=== PATIENT | female | born 1965 | race Caucasian/White ===

== ENCOUNTER 2018-09-19 13:57 | Emergency (ER) | payer OTHER ==
[~2018-09-19] VITALS: Ht 167.6 cm; Wt 65.8 kg
[~2018-09-19 13:57] MED LIST: ASPI1TAB31 PO; HYDR-2761 PO; IBUP200C9 PO
[2018-09-19 14:52] VITALS: BP 149/89
--- NOTE | 2018-09-19 14:56 | PHYS DOC ---
Past Medical History Past Medical History: Ovarian Cyst Adult General Chief Complaint Chief Complaint: PELVIC PAIN HPI HPI Patient is a 53 year old female with history of ovarian cyst who presents to the ED today complaining of mild burning left pelvic pain intermittently for 2 weeks. Patient denies anything specifically exacerbating or relieving the pain. She states she has been taking ibuprofen with no relief. She states the last time she had similar symptoms she had endometriosis. She states she called the ANIMAL CARE SERVICE WORKER's office and they requested her to come to the ED. Review of Systems Review of Systems Constitutional: Denies fever or chills [] Eyes: Denies change in visual acuity, redness, or eye pain [] HENT: Reports sinus infection, denies sore throat [] Respiratory: Denies cough or shortness of breath [] Cardiovascular: No additional information not addressed in HPI [] GI: Reports left pelvic pain, denies nausea, vomiting, bloody stools or diarrhea [] : Denies dysuria or hematuria [] Musculoskeletal: Denies back pain or joint pain [] Integument: Denies rash or skin lesions [] Neurologic: Denies headache, focal weakness or sensory changes [] All other systems were reviewed and found to be within normal limits, except as documented in this note. Allergies Allergies Allergies Coded Allergies Type Severity Reaction Last Updated Verified No Known Drug Allergies 09/16/14 No Physical Exam Physical Exam Constitutional: Well developed, well nourished, no acute distress, non-toxic appearance. [] HENT: Normocephalic, atraumatic, bilateral external ears normal, oropharynx moist, no oral exudates, Eyes: PERRLA, EOMI, conjunctiva normal, no discharge. [] Patient sounds congested nasally. Mild maxillary sinus tenderness, boggy and erythematous nasal turbinates Neck: Normal range of motion, no tenderness, supple, no stridor. [] Cardiovascular:Heart rate regular rhythm, no murmur [] Lungs & Thorax: Bilateral breath sounds clear to auscultation [] Abdomen: Bowel sounds normal, soft, no tenderness, no masses, no pulsatile masses. [] Pelvic exam External pelvic appears normal, cervix not visualized, no CMT, mild left adnexal tenderness, no adnexal tenderness to the right. Trace amount of white discharge in the vaginal vault. Skin: Warm, dry, no erythema, no rash. [] Back: No tenderness, no CVA tenderness. [] Extremities: No tenderness, no cyanosis, no clubbing, ROM intact, no edema. [] Neurologic: Alert and oriented X 3, normal motor function, normal sensory function, no focal deficits noted. [] Psychologic: Affect normal, judgement normal, mood normal. [] Current Patient Data Vital Signs Vital Signs Date Time Temp Pulse Resp B/P (MAP) Pulse Ox O2 Delivery O2 Flow Rate FiO2 09/19/18 14:52 98.4 84 18 149/89 (109) 98 Room Air 98.4 Lab Values Laboratory Tests Test 09/19/18 14:40 09/19/18 14:57 09/19/18 15:01 Urine Collection Type Unknown Urine Color Yellow Urine Clarity Clear Urine pH 5.5 Urine Specific [place] 1.025 Urine Protein Negative mg/dL (NEG-TRACE) Urine Glucose (UA) Negative mg/dL (NEG) Urine Ketones (Stick) Negative mg/dL (NEG) Urine Blood Negative (NEG) Urine Nitrite Negative (NEG) Urine Bilirubin Negative (NEG) Urine Urobilinogen Dipstick 0.2 mg/dL (0.2 mg/dL) Urine Leukocyte Esterase Negative (NEG) Urine RBC 1-2 /HPF (0-2) Urine WBC 1-4 /HPF (0-4) Urine Squamous Epithelial Cells Mod /LPF Urine Bacteria Few /HPF (0-FEW) Urine Mucus Marked /LPF POC Urine HCG, Qualitative Hcg negative (Negative) White Blood Count 4.8 x10^3/uL (4.0-11.0) Red Blood Count 4.27 x10^6/uL (3.50-5.40) Hemoglobin 14.0 g/dL (12.0-15.5) Hematocrit 41.0 % (36.0-47.0) Mean Corpuscular Volume 96 fL (79-100) Mean Corpuscular Hemoglobin 33 pg (25-35) Mean Corpuscular Hemoglobin Concent 34 g/dL (31-37) Red Cell Distribution Width 12.8 % (11.5-14.5) Platelet Count 157 x10^3/uL (140-400) Neutrophils (%) (Auto) 58 % (31-73) Lymphocytes (%) (Auto) 32 % (24-48) Monocytes (%) (Auto) 8 % (0-9) Eosinophils (%) (Auto) 2 % (0-3) Basophils (%) (Auto) 1 % (0-3) Neutrophils # (Auto) 2.8 x10^3uL (1.8-7.7) Lymphocytes # (Auto) 1.5 x10^3/uL (1.0-4.8) Monocytes # (Auto) 0.4 x10^3/uL (0.0-1.1) Eosinophils # (Auto) 0.1 x10^3/uL (0.0-0.7) Basophils # (Auto) 0.0 x10^3/uL (0.0-0.2) Sodium Level 140 mmol/L (136-145) Potassium Level 3.8 mmol/L (3.5-5.1) Chloride Level 105 mmol/L (98-107) Carbon Dioxide Level 27 mmol/L (21-32) Anion Gap 8 (6-14) Blood Urea Nitrogen 14 mg/dL (7-20) Creatinine 0.9 mg/dL (0.6-1.0) Estimated GFR (Cockcroft-Gault) 66.0 BUN/Creatinine Ratio 16 (6-20) Glucose Level 92 mg/dL (70-99) Calcium Level 9.1 mg/dL (8.5-10.1) Total Bilirubin 0.2 mg/dL (0.2-1.0) Aspartate Amino Transferase (AST) 17 U/L (15-37) Alanine Aminotransferase (ALT) 18 U/L (14-59) Alkaline Phosphatase 55 U/L (46-116) Total Protein 7.0 g/dL (6.4-8.2) Albumin 3.7 g/dL (3.4-5.0) Albumin/Globulin Ratio 1.1 (1.0-1.7) Lipase 198 U/L (73-393) Laboratory Tests 09/19/18 15:01 Laboratory Tests 09/19/18 15:01 Microbiology 09/19/18 Wet Prep - Final, Complete EKG EKG [] Radiology/Procedures Radiology/Procedures []PROCEDURE: PELVIS W/TV Pelvic ultrasound HISTORY: Left pelvic pain. Transabdominal scan: Uterus visualization is limited. Ovaries are not seen. Endovaginal scan: Uterus measures 8.7 x 4.6 x 5.8 cm, with a heterogeneous appearance. Endometrial stripe measures 10 mm. Right ovary measures 2.6 cm long axis. Intact blood supply to the right ovary. Right ovary demonstrates small cysts and follicles, measuring up to 1 cm. Left ovary measures 3.1 cm long axis, and contains a 17 mm heterogeneous lesion, likely a complex cyst. Intact blood supply to the left ovary. Mild free pelvic fluid in the cul-de-sac. IMPRESSION: 1. Lesion within the left ovary, most likely a 17 mm complex or hemorrhagic cyst. Follow-up ultrasound in about 6 weeks could be of benefit for further evaluation. 2. Mildly heterogeneous uterine echotexture, without evidence of a dominant mass. 3. Mild free pelvic fluid. Electronically signed by: Alfredo Denson MD (09/19/2018 3:58 PM) [facility] DICTATED and SIGNED BY: ALFREDO DENSON MD DATE: 09/19/18 1558 Course & Med Decision Making Course & Med Decision Making Pertinent Labs and Imaging studies reviewed. (See chart for details) This is a 53-year-old female patient presenting to the ED today complaining of left pelvic pain for 2 weeks. CBC with a normal WBC, normal hemoglobin and hematocrit, CMP-no acute findings. Urine analysis is negative for infection, wet prep is negative. pelvic ultrasound-Lesion within the left ovary, most likely a 17 mm complex or hemorrhagic cyst. Follow-up ultrasound in about 6 weeks could be of benefit for further evaluation. Mildly heterogeneous uterine echotexture, without evidence of a dominant mass. Results also communicated to patient, upon discharge she states she's had a sinus infection with symptoms for almost 2 weeks, she has tried [id number] remedies with no relief. She is requesting antibiotics. She is afebrile. Discharged on Augmentin. Ibuprofen and Tylenol recommended for her pain. She she states she'll follow-up with her [employer]IMAL CARE SERVICE WORKER in 4 weeks. Dragon Disclaimer Dragon Disclaimer This electronic medical record was generated, in whole or in part, using a voice recognition dictation system. Departure Departure Impression: Primary Impression: Hemorrhagic cyst of left ovary Additional Impression: Acute sinusitis Disposition: 01 HOME, SELF-CARE Condition: STABLE Referrals: UNKNOWN PCP NAME (PCP) follow up with your OBGYN in 4 weeks as scheduled. Patient Instructions: Ovarian Cyst, Sinusitis Additional Instructions: You were evaluated in the emergency room for pelvic pain. Chest pain urine noted to have a left hemorrhagic cyst, please follow-up with her [employer]IMAL CARE SERVICE WORKER as as scheduled. Please take Tylenol/Motrin as needed for pain. We also put you on antibiotics for sinus infection, ensure you complete them. Scripts Amoxicillin/Potassium Clav (AUGMENTIN 875-125 TABLET) 1 Each Tablet 1 TAB PO BID, #20 TAB Prov: JAQUAN POLK APRN 09/19/18 Problem Qualifiers Additional Impression: Acute sinusitis Sinusitis location: maxillary Recurrence: non-recurrent Qualified Codes: J01.00 - Acute maxillary sinusitis, unspecified JAQUAN POLK JUNIOR DESIGNER Sep 19, 2018 14:56
[2018-09-19 15:09] LABS: BASO % 1 % (0-3); EOS # 0.1 x10^3/uL (0.0-0.7); EOS % 2 % (0-3); LYMPH # 1.5 x10^3/uL (1.0-4.8); LYMPH % 32 % (24-48); MEAN CORPUSCULAR HEMOGLOBIN 33 pg (25-35); MEAN CORPUSCULAR HGB CONC 34 g/dL (31-37); MEAN CORPUSCULAR VOLUME 96 fL (79-100); MONO # 0.4 x10^3/uL (0.0-1.1); MONO % 8 % (0-9); NEUT # 2.8 x10^3uL (1.8-7.7); NEUT % 58 % (31-73); PLATELET COUNT 157 x10^3/uL (140-400); RED BLOOD COUNT 4.27 x10^6/uL (3.50-5.40); RED CELL DISTRIBUTION WIDTH 12.8 % (11.5-14.5); WHITE BLOOD COUNT 4.8 x10^3/uL (4.0-11.0)
[2018-09-19 15:11] LABS: BILIRUBIN,URINE NEGATIVE (NEG); CLARITY,URINE CLEAR; COLOR,URINE YELLOW; NITRITE,URINE NEGATIVE (NEG); PH,URINE 5.5; PROTEIN,URINE NEGATIVE (NEG-TRACE); UROBILINOGEN,URINE 0.2 mg/dL (0.2 mg/dL)
[2018-09-19 15:20] LABS: CALCIUM 9.1 mg/dL (8.5-10.1); CREATININE 0.9 mg/dL (0.6-1.0); POTASSIUM 3.8 mmol/L (3.5-5.1)
[2018-09-19 15:24] LABS: ALBUMIN 3.7 g/dL (3.4-5.0); ALBUMIN/GLOBULIN RATIO 1.1 (1.0-1.7); TOTAL BILIRUBIN 0.2 mg/dL (0.2-1.0)
[2018-09-19 15:31] LABS: BACTERIA,URINE FEW /HPF (0-FEW); SQUAMOUS EPITHELIAL CELL,UR MOD /LPF
--- NOTE | 2018-09-19 16:01 | RAD ---
Pelvic ultrasound HISTORY: Left pelvic pain. Transabdominal scan: Uterus visualization is limited. Ovaries are not seen. Endovaginal scan: Uterus measures 8.7 x 4.6 x 5.8 cm, with a heterogeneous appearance. Endometrial stripe measures 10 mm. Right ovary measures 2.6 cm long axis. Intact blood supply to the right ovary. Right ovary demonstrates small cysts and follicles, measuring up to 1 cm. Left ovary measures 3.1 cm long axis, and contains a 17 mm heterogeneous lesion, likely a complex cyst. Intact blood supply to the left ovary. Mild free pelvic fluid in the cul-de-sac. IMPRESSION: 1. Lesion within the left ovary, most likely a 17 mm complex or hemorrhagic cyst. Follow-up ultrasound in about 6 weeks could be of benefit for further evaluation. 2. Mildly heterogeneous uterine echotexture, without evidence of a dominant mass. 3. Mild free pelvic fluid. Electronically signed by: Johnny Denson MD (09/19/2018 3:58 PM) [facility]
[2018-09-19] MEDS ORDERED: AMOX1TAB61 PO (16:29)
[2018-09-22 14:15] LABS: GC PROBE Negative (Negative)
== END 2018-09-19 16:40 | disposition home or self-care (01) ==
LOC: ER 13:57
DX: N83.202 Unspecified ovarian cyst, left side (principal); J01.00 Acute maxillary sinusitis, unspecified
CPT/HCPCS: 36415; 76830; 76856; 80053; 81001; 81025; 83690; 85025; 87491; 87591; 99285; Q0111

== ENCOUNTER → 2020-08-05 | Outpatient (CLI) | payer OTHER ==
[~2020-08-05] MED LIST changes: +AMOX1TAB61 PO
--- NOTE | 2020-08-05 10:21 | KCIC ---
EXAM: Lumbar spine MRI without contrast. HISTORY: Left-sided sciatica after shoveling snow. TECHNIQUE: Multiplanar, multisequence magnetic resonance imaging of the lumbar spine was performed wi thout contrast. COMPARISON: None. FINDINGS: There is no significant listhesis. The vertebral bodies are normal in height. There is dege nerative endplate remodeling and Schmorl's node formation at T10-T11 and T11-T12. There is slight dis c desiccation at the lower lumbar levels. The conus terminates at L1. There is no fracture. At L1-L2 and L2-L3, there is no stenosis. At L3-L4, there is a mild disc bulge and endplate remodeling. There is no stenosis. At L4-L5, there is a mild disc bulge and endplate remodeling. There is no stenosis. At L5-S1, there is endplate remodeling. There is no stenosis. IMPRESSION: Mild multilevel degenerative change involving the lumbar spine, described above. There i s no acute finding or significant foraminal or central canal stenosis. Electronically signed by: Charlene Posada MD (08/05/2020 10:18 AM) [id number]
== END ==
LOC: KCIC MRI 09:11
PROVIDERS: ATTEND Family Medicine
DX: M47.816 Spondylosis without myelopathy or radiculopathy, lumbar region (principal)
CPT/HCPCS: 72148

== ENCOUNTER → 2020-08-17 | Outpatient (CLI) | payer OTHER ==
[~2020-08-17] MED LIST changes: +ACET500T68 PO; +CYAN25008 PO; +HERB1CAP PO; +MULT-245 PO
--- NOTE | 2020-08-17 15:17 | PDOC1 ---
INITIAL PAIN CONSULT DATE OF SERVICE: DOS: DATE: 08/17/20 TIME: 15:10 CHIEF COMPLAINT: Chief Complaint: Low back and left lower extremity pain HISTORY OF PRESENT ILLNESS: 55-year-old female presents with pain the low back left lower extremity on and off for many years but worse over the past 1 month after she was shoveling some snow and doing a lot of repetitive bending and stooping has pain now rating to the left lower extremity and across the low back into the gluteus posterior thigh posterior calf and into the ankle to the level of the foot patient reports no tingling in the toes but in the ankle significant tingling. Patient reports the pain is throbbing constant with some numbness in the leg radiating the left lower extremity and aching in the low back patient reports no symptoms on the right lower extremity. Patient has had physical therapy in the past and is still doing some stretching and strength exercises daily but no formal therapy recently patient reports she did have epidural injections in the past which were helpful as well also has tried methylprednisolone Tylenol and hydrocodone all of which do help took Tylenol last night as well as hydrocodone which does help significantly by about 50% patient reports no loss of motor function but significant fatigability of the left leg worse with walking standing changing positions better with sitting or laying down generally does not awaken her from sleep occasionally has over the past week or so patient reports it can affect her bowel bladder control with some increased urgency but no actual incontinence. Patient reports it does affect her ability to walk in sitting and she is leaning on her right side when she is sitting during the interview today. Patient reports her disability rating 0-10 10 being the worst is a 9 within normal limits ability 7-8 with recreation social activity occupation 9 with sexual behavior 7 with self-care and several life support activities. Did have a new MRI scan dated August 05, 2020 showing mild multilevel degenerative change along the lumbar spine with disc bulge at L4-5 disc bulge and mild disc bulge with endplate remodeling L34 and endplate remodeling L5-S1 as well. PAST MEDICAL HISTORY: PMH: Arthritis blood clots PREVIOUS SURGERIES: Past Surgical Hx: x1, tubal ligation, hemorrhoidectomy, left knee scope, left foot surgery, uterine ablation. CURRENT MEDICATIONS: Current Meds: Active Scripts Medications Dose Route/Sig Max Daily Dose Days Date Category Colon Herbal Cleanser (Herbal Drugs) 1 Each Capsule 1 Each PO DAILY 3/24/21 Reported Hydrocodone-Apap 5-325 (Hydrocodone Bit/Acetaminophen) 1 Tab Tablet 1 Tab PO PRN Q6HRS PRN 08/17/20 Reported Acetaminophen 500 Mg Tablet 1 Tab PO PRN Q6HRS PRN 15 08/17/20 Reported Vitamin B12 (Cyanocobalamin (Vitamin B-12)) 2,500 Mcg Tablet Unknown Dose PO DAILY 08/17/20 Reported Multi Vitamin Daily (Multivitamin) 1 Each Tablet 1 Tab PO DAILY 30 08/17/20 Reported Advil (Ibuprofen) 200 Mg Capsule 200 Mg PO PRN 03/09/15 Reported Excedrin Migraine Caplet (Aspirin/Acetaminophen/Caffeine) 1 Each Tablet 1 Each PO PRN 03/09/15 Reported ALLERGIES; Allergies: Coded Allergies: No Known Drug Allergies (Unverified , 09/16/14) FAMILY HISTORY: Family Hx: Diabetes, and heart disease in patient's father SOCIAL HISTORY: Social Hx: Patient drinks alcohol 2-3 times a week does not smoke does not use any illegal illicit recreational drugs is lives with her spouse lives locally in [facility] works currently from home mostly in a sitting position at her desk. REVIEW OF SYSTEMS: ROS: Positive for those items mentioned in history of present illness, all systems are reviewed, otherwise negative ,and are complete full and well-documented on patient's chart. PHYSICAL EXAM: VS: Blood pressure is 121/61 pulse 16 respirations 72 temperature 99.1 F height is 5 foot 6 inches weight is 159 pounds PE: PHYSICAL EXAMINATION: GENERAL: The patient is awake, alert, oriented, appropriate, very pleasant demeanor HEENT: Shows normocephalic, atraumatic. Extraocular movements are intact and symmetrical. Oral cavity: Mucous membranes moist and pink. Dentition is intact. NECK: Shows anterior throat supple without palpable lymphadenopathy noted. Swallow reflex symmetrical. CHEST: Shows normal on inspection. Breath sounds are clear bilaterally, no rales or rhonchi. HEART: Shows S1, S2 clear. No murmurs auscultated. ABDOMEN: Soft, nontender, nondistended, obese. No palpable organomegaly is noted. No rebound or guarding demonstrated. BACK: Shows spine grossly in the midline. Normal-appearing cervical lordotic curvature. There is slightly increased thoracic kyphosis, some minor flattening of the lumbar lordotic curvature. Lumbar paraspinous muscles show symmetrical on inspection, on palpation shows some moderate tenderness diffusely throughout the upper, middle and lower distribution of the paraspinous muscles bilaterally and also into the lower thoracic paraspinous musculature, firm and tender, but without specific trigger points, without radiation of pain. The patient has good rotational motion of the lumbar spine, both laterally as well as extension and flexion without significant difficulty. No tenderness over the spinous processes, sacrum or sacroiliac regions. EXTREMITIES: Lower extremities show deep tendon reflexes 2+ in the patellar and tendo calcaneus tendons. Motor exam is 5 on a scale of 5 with right dorsiflexion, extension, quadriceps and hamstring flexion and 4/5 on the left. Peripheral pulses are 1+ posterior tibial. No peripheral edema is noted bilaterally. Lower extremities are warm and dry to touch, equal in color and appearance. Straight leg raise noted to be negative on the right, left side is positive at approximately 35 degrees decreased with knee flexion. Gaenslen's and Maximo's maneuvers are negative bilaterally. The patient is able to stand, stand on her toes without significant difficulty or loss of balance and walks with a normal-appearing gait does not appear to favor the right or left lower extremity significantly for short distance in the office today not using any assistive devices to ambulate. SKIN: Shows warm and dry, good turgor. No edema. No sores, rashes or bruising throughout. IMPRESSION: Impression: 55-year-old female with approximate 1 month history increasing pain low back left lower extremity radicular fashion following L5-S1 dermatomal distribution. History of arthritis Plan: Options were discussed with the patient including conservative medical management physical therapies interventional techniques. Patient elects interventional techniques. We discussed a lumbar epidural steroid injections using description as well as anatomical models to describe the procedure. Patient will wait for preauthorization with insurance provider and return for a translaminar L5-S1 lumbar epidural steroid injection at that time. In the meantime patient will continue with stretching strength exercises walking daily as tolerated. DIONY HUGHES MD Aug 17, 2020 15:16
== END | disposition home or self-care (01) ==
LOC: PNCL 14:16
PROVIDERS: ATTEND Anesthesiology
DX: M54.5 Low back pain (principal); M79.605 Pain in left leg; M19.90 Unspecified osteoarthritis, unspecified site; Z79.899 Other long term (current) drug therapy; Z98.890 Other specified postprocedural states; Z83.3 Family history of diabetes mellitus; Z82.49 Family history of ischemic heart disease and other diseases of the circulatory system; Z72.89 Other problems related to lifestyle
CPT/HCPCS: 99212; G0463

== ENCOUNTER → 2020-08-25 | Outpatient (CLI) | payer OTHER ==
[~2020-08-25] MED LIST changes: +IOHEXOL 180 MG/ML 10 ML VIAL. ONE; +methylPREDNISolone ACETATE 40 MG/ML VIAL. ONE; +methylPREDNISolone ACETATE 80 MG/ML VIAL. ONE
--- NOTE | 2020-08-25 14:49 | PDOC ---
Progress Note - Pain Clinic Date of Service: DOS: DATE: 08/25/20 TIME: 14:46 Diagnosis: Dx: Lumbar radiculopathy with lumbar degenerative disc disease History or Present Illness: HPI: 55-year-old female returns follow-up status post initial evaluation and preauthorization for lumbar epidural steroid injection. Patient is obtained this now with her shortness provider would like to proceed patient reports pain low back left lower extremity posterior gluteus posterior thigh posterior calf and ankle on the left side essentially unchanged from previously. Patient reports is a 10 on scale 10 is worse over the past week 9 on average 8 its least and is an 8 today patient reports an aching type sensation in the low back with tingling and burning and shooting in the left lower extremity. Patient reports no new motor or sensory deficits no new bowel or bladder incontinence better with sitting or laying down generally does not awaken her from sleep at night but can over the past week or so about every 6-8 hours patient reports no motor loss no bowel or bladder incontinence or other complaints at this time. Physical Exam: VS: Blood pressure is 120/75 pulse 87 respirations 18 temperature 99.2 F height is 5 feet 6 inches weight 162 pounds PE: PHYSICAL EXAMINATION: GENERAL: The patient is awake, alert, oriented, appropriate, very pleasant demeanor HEENT: Shows normocephalic, atraumatic. Extraocular movements are intact and symmetrical. Oral cavity: Mucous membranes moist and pink. Dentition is intact. NECK: Shows anterior throat supple without palpable lymphadenopathy noted. Swallow reflex symmetrical. CHEST: Shows normal on inspection. Breath sounds are clear bilaterally. HEART: Shows S1, S2 clear. No murmurs auscultated. ABDOMEN: Soft, nontender, nondistended. No palpable organomegaly is noted. No rebound or guarding demonstrated. BACK: Shows spine grossly in the midline. Normal-appearing cervical lordotic curvature. There is slightly increased thoracic kyphosis, some minor flattening of the lumbar lordotic curvature. Lumbar paraspinous muscles show symmetrical on inspection, on palpation shows some moderate tenderness diffusely throughout the upper, middle and lower distribution of the paraspinous muscles, but without specific trigger points, without radiation of pain. The patient has good rotational motion of the lumbar spine, both laterally as well as extension and flexion without significant difficulty. EXTREMITIES: Lower extremities show deep tendon reflexes 2+ in the patellar and tendo calcaneus tendons. Motor exam is 5 on a scale of 5 with right dorsiflexion, extension, quadriceps and hamstring flexion and 5/5 on the left. Peripheral pulses are 1 posterior tibial. No peripheral edema is noted bilaterally. Lower extremities are warm and dry to touch, equal in color and appearance. SKIN: Shows warm and dry, good turgor. No edema. No sores, rashes or bruising throughout. Procedure: Procedure: Options discussed with the patient. Patient chart reviews her current medication regimen updated current review of systems updated today as well. We will proceed with a lumbar epidural steroid ejections today with fluoroscopic guidance. Risks were discussed including but not limited to: Bleeding, infection, possibility of epidural hematoma and subsequent neurological compromise, dural puncture, headaches, spinal cord and/or nerve damage, side effects of steroid medication, and poor results regarding pain control. Patient understands and wished to proceed. Patient will return to the clinic in approximate 2 weeks for follow-up, was counseled as to return appointment ac tivity level and side effects to be aware of. Medication Injected: Med Injected: Procedure is lumbar epidural steroid injection under local anesthetic using sterile prep and drape at the L5-S1 level using C-arm fluoroscopic guidance in both AP and lateral views medications injected is 120 mg Depo-Medrol + 10 mL preservative-free normal saline and 2 mL contrast- condition at discharge is stable patient tolerated procedure well had no complications. Condition at Discharge: Condition at Discharge: Condition at discharge stable, patient tolerated the procedure well and had no complications. DIONY HUGHES MD Aug 25, 2020 14:49
--- NOTE | 2020-08-25 14:49 | PDOC4 ---
PROCEDURE Procedure Patient is consented for lumbar epidural steroid injection. Risks were disc ussed including but not limited to: Bleeding, infection, possibility of epidural hematoma and subsequent neurological compromise, dural puncture, headaches, spinal cord and/or nerve damage, side effects of steroid medication, and poor results regarding pain control. Patient understands and wished to proceed. Procedure is lumbar epidural steroid injection under local anesthetic using sterile prep and drape at the L5-S1 level using C-arm fluoroscopic guidance in both AP and lateral views medications injected is 120 mg Depo-Medrol + 10 mL preservative-free normal saline and 2 mL contrast- condition at discharge is stable patient tolerated procedure well had no complications. DIONY HUGHES MD Aug 25, 2020 14:49
== END | disposition home or self-care (01) ==
LOC: PNCL 14:14
PROVIDERS: ATTEND Anesthesiology
DX: M51.16 Intervertebral disc disorders with radiculopathy, lumbar region (principal); Z79.82 Long term (current) use of aspirin; Z79.899 Other long term (current) drug therapy; Z98.890 Other specified postprocedural states; Z72.89 Other problems related to lifestyle
CPT/HCPCS: 62323; J1030; J1040; Q9965

== ENCOUNTER → 2020-09-08 | Outpatient (CLI) | payer OTHER ==
--- NOTE | 2020-09-08 14:41 | PDOC ---
Progress Note - Pain Clinic Date of Service: DOS: DATE: 09/08/20 TIME: 14:38 Diagnosis: Dx: Lumbar radiculopathy with lumbar degenerative disc disease History or Present Illness: HPI: 55-year-old female returns for follow-up status post lumbar epidural steroid injection x1. Patient reports about 25% improvement in the low back and left greater than right lower extremities patient reports is a 9 on scale 10 is worse over the past week 8-9 on average and 7 its least is an 8 today. Patient describes an aching tingling burning radiating coming more constant with walking standing changing position especially prolonged sitting. Patient reports no new motor or sensory deficits but still significant pain is waking her from sleep at night about once or twice every evening. Patient reports no bowel or bladder incontinence no new motor or sensory deficits. Physical Exam: VS: Blood pressure is 112/61 pulse 90 respirations 16 temperature 90.7 F weight is 164 pounds PE: PHYSICAL EXAMINATION: GENERAL: The patient is awake, alert, oriented, appropriate, very pleasant demeanor HEENT: Shows normocephalic, atraumatic. Extraocular movements are intact and symmetrical. Oral cavity: Mucous membranes moist and pink. Dentition is intac t. NECK: Shows anterior throat supple without palpable lymphadenopathy noted. Swallow reflex symmetrical. CHEST: Shows normal on inspection. Breath sounds are clear bilaterally. HEART: Shows S1, S2 clear. No murmurs auscultated. ABDOMEN: Soft, nontender, nondistended. No palpable organomegaly is noted. No rebound or guarding demonstrated. BACK: Shows spine grossly in the midline. Normal-appearing cervical lordotic curvature. Lumbar paraspinous muscles show symmetrical on inspection, on palpation shows some moderate tenderness diffusely throughout the upper, middle and lower distribution of the paraspinous muscles, but without specific trigger points, without radiation of pain. The patient has good rotational motion of the lumbar spine, both laterally as well as extension and flexion without significant difficulty. No tenderness over the spinous processes, sacrum or sacroiliac regions. EXTREMITIES: Lower extremities show deep tendon reflexes 2+ in the patellar and tendo calcaneus tendons. Motor exam is 5 on a scale of 5 with right dorsiflexion, extension, quadriceps and hamstring flexion and 5/5 on the left. Peripheral pulses are 1+ posterior tibial. No peripheral edema is noted bilaterally. Lower extremities are warm and dry to touch, equal in color and appearance. SKIN: Shows warm and dry, good turgor. No edema. No sores, rashes or bruising throughout. Procedure: Procedure: Options were discussed with the patient. Patient chart reviews her current medication regimen updated current review of systems updated today as well. We will proceed with a second in the series lumbar epidural steroid injection today with fluoroscopic guidance. Risks were discussed including but not limited to: Bleeding, infection, possibility of epidural hematoma and subsequent neurological compromise, dural puncture, headaches, spinal cord and/or nerve damage, side effects of steroid medication, and poor results regarding pain control. Patient understands and wished to proceed. Patient will return to clinic in approximately 2 weeks for follow-up, was counseled as to return appointment activity level and side effects to be aware of. Medication Injected: Med Injected: Procedure is lumbar epidural steroid injection under local anesthetic using sterile prep and drape at the L5-S1 level using C-arm fluoroscopic guidance in both AP and lateral views medications injected is 120 mg Depo-Medrol + 10 mL preservative-free normal saline and 2 mL contrast- condition at discharge is stable patient tolerated procedure well had no complications. Condition at Discharge: Condition at Discharge: Condition at discharge stable, patient alert the procedure well and had no complications. DIONY HUGHES MD Sep 08, 2020 14:40
--- NOTE | 2020-09-08 14:41 | PDOC4 ---
PROCEDURE Procedure Patient was consented for lumbar epidural steroid injection. Risks were dis cussed including but not limited to: Bleeding, infection, possibility of epidural hematoma and subsequent neurological compromise, dural puncture, headaches, spinal cord and/or nerve damage, side effects of steroid medication, and poor results regarding pain control. Patient understands and wished to proceed. Procedure is lumbar epidural steroid injection under local anesthetic using sterile prep and drape at the L5-S1 level using C-arm fluoroscopic guidance in both AP and lateral views medications injected is 120 and mg Depo-Medrol + 10 mL preservative-free normal saline and 2 mL contrast- condition at discharge is stable patient tolerated procedure well had no complications. DIONY HUGHES MD Sep 08, 2020 14:41
== END | disposition home or self-care (01) ==
LOC: PNCL 13:44
PROVIDERS: ATTEND Anesthesiology
DX: M51.16 Intervertebral disc disorders with radiculopathy, lumbar region (principal); Z79.82 Long term (current) use of aspirin; Z79.899 Other long term (current) drug therapy; Z72.89 Other problems related to lifestyle
CPT/HCPCS: 62323; J1030; J1040; Q9965

== ENCOUNTER → 2020-10-21 | Outpatient (CLI) | payer OTHER ==
[~2020-10-21] MED LIST changes: +GADOTERATE 5 MMOL/10ML VIAL. INT ART ONE; -IOHEXOL 180 MG/ML 10 ML VIAL. ONE; +IOHEXOL 300 MG/ML 50 ML VIAL. INT ART ONE; +LIDOCAINE 1% Multi-Dose 20 ML VIAL. IJ ONE; -methylPREDNISolone ACETATE 40 MG/ML VIAL. ONE; -methylPREDNISolone ACETATE 80 MG/ML VIAL. ONE
--- NOTE | 2020-10-21 16:43 | KCIC ---
MRI RIGHT SHOULDER ARTHROGRAM Clinical indications: Right shoulder pain. Patient fell one month ago. TECHNIQUE: After intra-articular injection of gadolinium, post arthrogram MRI sequences of the right shoulder were performed in all 3 planes. The intra-articular injection of gadolinium was performed by another radiologist and is dictated unde r separate report. FINDINGS: There is a complete tear of the lateral aspect of the supraspinatus tendon. Contrast is see n within the subdeltoid and subacromial bursa as a result. The transverse dimension of the defect is 15 mm and the AP dimension is 23 mm. The infraspinatus tendon and subscapularis tendon are intact. Te ndon of the long of the biceps is intact. No muscle atrophy or muscle edema is seen. There is mild de generative osteoarthritis and spurring of the AC joint. A type III acromial process is seen. These fi ndings may impinge the acromial humeral space. No marrow infiltrative process or fracture is seen. Th e glenohumeral joint is unremarkable and no loose body or articular cartilage defect is seen. No labr al tear is evident. No paralabral ganglion cyst or spinoglenoid notch ganglion cyst is seen. IMPRESSION: Moderate-sized complete rotator cuff tear of the supraspinatus tendon. Electronically signed by: Berry Browne MD (10/21/2020 4:41 PM) [id number]
--- NOTE | 2020-10-21 17:22 | KCIC ---
Fluoroscopically guided injection of the right shoulder to facilitate a MR arthrogram 10/13/2020 Clinical history: Right shoulder pain. Technique: After the risks and benefits of the procedure were explained to the patient, written infor med consent was obtained. The anterior skin surface of the right shoulder was prepped and draped in s terile fashion. 1% lidocaine was used as local anesthetic. Under fluoroscopic guidance, a 22-gauge sp inal needle was advanced into the anterior aspect of the left glenohumeral joint. Intra-articular pos ition of the needle was confirmed using 5 cc of Omnipaque 300. Following this 15 cc of a solution con taining 8 cc of 0.1% lidocaine, 5 cc of Omnipaque 300, 10 cc of normal saline and 0.1 cc of CLARISCAN were injected into the right glenohumeral joint. Following this the needle was removed and hemostasi s achieved at the puncture site. A sterile bandage was placed on the skin puncture site. The patient tolerated the procedure well and there were no immediate complications. The patient was taken to MRI for further imaging evaluation. The total fluoroscopic time for this study was 33 seconds. 2 digital fluoroscopic captured AP radiographs of the right shoulder was obtained. Impression: Technically successful injection of the right shoulder joint under fluoroscopy to facilit ate a MR arthrogram as outlined above. Electronically signed by: Jak Brown MD (10/21/2020 5:19 PM) [id number]
== END | disposition home or self-care (01) ==
LOC: KCIC 13:24
PROVIDERS: ATTEND Family Medicine
DX: M75.121 Complete rotator cuff tear or rupture of right shoulder, not specified as traumatic (principal); Z79.82 Long term (current) use of aspirin; Z79.899 Other long term (current) drug therapy; Z72.89 Other problems related to lifestyle; Z98.890 Other specified postprocedural states
CPT/HCPCS: 23350; 73222; 77002

== ENCOUNTER 2020-12-16 09:10 | Emergency (ER) | payer OTHER ==
[~2020-12-16] VITALS: Ht 167.6 cm; Wt 65.5 kg
[~2020-12-16 09:10] MED LIST changes: -GADOTERATE 5 MMOL/10ML VIAL. INT ART ONE; -IOHEXOL 300 MG/ML 50 ML VIAL. INT ART ONE; -LIDOCAINE 1% Multi-Dose 20 ML VIAL. IJ ONE
[2020-12-16 09:53] VITALS: BP 115/71
--- NOTE | 2020-12-16 10:13 | ED.ADGEN ---
Past Medical History Past Medical History: Ovarian Cyst Past Surgical History: , Knee Replacement Smoking Status: Never Smoker Alcohol Use: Occasionally Drug Use: None General Adult EDM: Chief Complaint: PAIN CONTROL HPI: HPI: Patient is a 55-year-old female who presents to the emergency room with pos toperative pain. Patient had a rotator cuff surgery done yesterday at . She has been taking oxycodone since discharged. She states that the pain is severe. She tried to call her doctor this morning but they did not call her back until she was here in the emergency room. She is requesting a nerve block. She states pain is throbbing in nature and worse with any kind movement. Review of Systems: Review of Systems: Complete ROS is negative unless otherwise documented in HPI Allergies: Allergies: Allergies Coded Allergies Type Severity Reaction Last Updated Verified No Known Drug Allergies 09/16/14 No Physical Exam: PE: General: Awake, alert, NAD. Well Nourished, well hydrated. Cooperative HEENT: Atraumatic, EOMI, PERRL, airway patent, moist oral mucosa Neck: Supple, trachea midline Respiratory: CTA bilaterally, normal effort, no wheezing/crackles CV: RRR, no murmur, cap refill <2 GI: Soft, nondistended, nontender, no masses MSK: Right upper extremity: Surgical dressing on the right shoulder, arm and i mmobilizer Skin: Warm, dry, intact Neuro: A&O x3, speech NL, sensory and motor grossly intact, no focal deficits Psych: Normal affect, normal mood, not suicidal or homicidal Current Patient Data: Vital Signs: Vital Signs Date Time Temp Pulse Resp B/P (MAP) Pulse Ox O2 Delivery O2 Flow Rate FiO2 12/16/20 09:53 98.1 56 18 115/71 94 Room Air 98.1 EKG: EKG: [] Heart Score: C/O Chest Pain: N/A Risk Factors: Risk Factors: DM, Current or recent (<one month) smoker, HTN, HLP, family history of CAD, obesity. Risk Scores: Score 0 - 3: 2.5% MACE over next 6 weeks - Discharge Home Score 4 - 6: 20.3% MACE over next 6 weeks - Admit for Clinical Observation Score 7 - 10: 72.7% MACE over next 6 weeks - Early Invasive Strategies Radiology/Procedures: Radiology/Procedures: [] Course & Med Decision Making: Course & Med Decision Making Pertinent Labs and Imaging studies reviewed. (See chart for details) Patient is a 55-year-old female presents to the emergency room with postop pain from rotator cuff surgery. She is requesting a nerve block. Have discussed with the patient that we are unable to do nerve blocks in the emergency room. Patient decided that she would like to leave.-Recommended that she call her orthopedic surgeon for further recommendations on pain control. Javon Disclaimer: Javon Disclaimer: This electronic medical record was generated, in whole or in part, using a voice recognition dictation system. Departure Departure Impression: Primary Impression: Pain, acute postoperative Disposition: 07 LEFT AWOL/ELOPED Condition: STABLE TERENCE MARROQUIN MD Dec 16, 2020 10:13
== END 2020-12-16 10:02 | disposition left against medical advice (07) ==
LOC: ER 09:10
DX: G89.18 Other acute postprocedural pain (principal)
CPT/HCPCS: 99281

== ENCOUNTER → 2021-05-16 | Outpatient (CLI) | payer OTHER ==
--- NOTE | 2021-05-16 15:01 | KCIC ---
STUDY: MRI of the right shoulder without contrast INDICATION: Postoperative evaluation. Manipulation surgery for frozen shoulder in March 2021. Repo rted rotator cuff repair and biceps tenodesis in October 2020. Ongoing pain. Limited range of motion. COMPARISON: Right shoulder MRI 10/13/2020 TECHNIQUE: Multiplanar MR imaging of the right shoulder performed without the use of intravenous or i ntra-articular contrast. FINDINGS: AC joint: Mild AC joint arthrosis. Small volume fluid within the subacromial subdeltoid bursa. Rotator cuff: Sequela of rotator cuff repair with multiple suture anchors in the region of the supras pinatus and infraspinatus insertions. The repaired tendon is heterogeneous in signal and morphology a nd with areas of thinning to include an area at the posterior supraspinatus critical zone measuring 7 mm mediolateral by 6 mm transverse. No findings such as retracted tendon fibers to indicate a recurr ent full-thickness tear. The teres minor and subscapularis are intact. Rotator cuff muscular bulk is maintained. Labrum: Heterogeneous morphology at the superior labrum at least in part iatrogenic from long head bi ceps takedown. No newly apparent tear at the lower half of the labrum. Long head biceps tendon: Status post tenodesis. The tendon is well-visualized within the bicipital gr oove. Cartilage: Mild partial thickness chondrosis such as at the lower half of the glenoid. Bones: Heterogeneous marrow signal without aggressive features. No edema or fluid along the suture an chors. No findings of avascular necrosis. Miscellaneous: Minimal joint fluid. Heterogeneous signal thickening of the joint capsule at the axill mario recess. There appears to be a smoothly marginated defect of the inferior capsule adjacent to the glenoid attachment likely iatrogenic. Minimal periarticular soft tissue edema. No significant active edema at the rotator interval. No axillary adenopathy. Impression: 1. Sequela of relatively recent rotator cuff repair with multiple suture anchors. No anchor loosenin g or retraction. The repaired tendon is heterogeneous in signal and morphology with some areas of thi nning such as at the posterior supraspinatus along the critical zone (see gutierrez images) but without a f luid signal defect or retracted tendon fibers to indicate a recurrent full-thickness tear. Rotator cu ff muscular bulk is maintained and without denervation edema. 2. Intact long head biceps tendon status post tenodesis. No newly apparent labral tear. 3. Smoothly marginated defect at the inferior capsule could be related to surgical release for froze n shoulder. A component of active adhesive capsulitis is not able to be excluded with the capsule thi ckened and mildly edematous in this region. No typical findings of adhesive capsulitis at the rotator interval. 4. Small amount of subacromial subdeltoid bursal fluid could be reactive to surgery or minimal bursi tis. Electronically signed by: LEE DOWNS MD (05/16/2021 2:58 PM) [id number]
== END ==
LOC: KCIC MRI 09:36
PROVIDERS: ATTEND Orthopaedic Surgery
DX: M19.011 Primary osteoarthritis, right shoulder (principal); M75.01 Adhesive capsulitis of right shoulder; Z98.890 Other specified postprocedural states
CPT/HCPCS: 73221

== ENCOUNTER → 2021-07-14 | Outpatient (CLI) | payer OTHER ==
[~2021-07-14] MED LIST changes: +DEXAMETHASONE PRES.FREE 10 MG/ML VIAL. ONE; +IOHEXOL 180 MG/ML 10 ML VIAL. ONE; +NAPR220C62 PO
--- NOTE | 2021-07-14 09:38 | PDOC ---
Progress Note - Pain Clinic Date of Service: DOS: DATE: 07/14/21 TIME: 09:33 Diagnosis: Dx: Lumbar radiculopathy with lumbar degenerative disc disease Right shoulder joint pain with rotator cuff tear History or Present Illness: HPI: 56-year-old female returns last seen September 08, 2020 status post lumbar epidural steroid injection with approximate 90% improvement for about 6 months. Patient reports she injured her right rotator cuff shortly after her last visit but this has been repaired surgically, still some significant pain in the rotator cuff itself as well as in the low back her main complaint is low back and left lower extremity pain however. Patient reports pain is a 10 on scale 10 is worst average and 80 to [place] is an 8 today patient reports she did very well after last injection with increased distance walking doing household activities with work activities try with greater ease and comfort sleeping better although is beginning to return over the past month or so in the low back left lower extremity posterior gluteus posterior thigh posterior calf radiating to the foot patient reports some fatigability in the left leg but no overt motor loss. Patient reports no bowel or bladder incontinence as well. Patient describes her pain as aching and sharp in the low back radiating shooting in the leg tight cramping can be burning tingling as well as constant and severe at times in the left lower extremity with walking and weightbearing. Patient reports no loss of motor function but significant fatigability once again and easily tired in the left leg with walking and standing. Patient reports no bowel or bladder incontinence. Patient reports she is currently taking naproxen which does help only very minimally with the low back and leg pain and only minimally with the right shoulder pain as well. We discussed this further and will start new prescription medication of meloxicam 15 mg once daily. Patient given instructions well side effects aware with the new medication. Physical Exam: VS: Blood pressure 118/83 pulse 90 respirations 16 temperature 90.8 F height 5 feet 6 inches weight is 157 pounds. PE: PHYSICAL EXAMINATION: GENERAL: The patient is awake, alert, oriented, appropriate, very pleasant in demeanor HEENT: Shows normocephalic, atraumatic. Extraocular movements are intact and symmetrical. Oral cavity: Mucous membranes moist and pink. Dentition is intact. NECK: Shows anterior throat supple without palpable lymphadenopathy noted. Swallow reflex symmetrical. CHEST: Shows normal on inspection. Breath sounds are clear bilaterally, no rales rhonchi or wheezes auscultated. HEART: Shows S1, S2 clear. No murmurs auscultated. ABDOMEN: Soft, nontender, nondistended. No palpable organomegaly is noted. BACK: Shows spine grossly in the midline. Normal-appearing cervical lordotic curvature. There is mildly increased thoracic kyphosis, some minor flattening of the lumbar lordotic curvature. Lumbar paraspinous muscles show symmetrical on inspection, on palpation shows some moderate tenderness diffusely throughout the upper, middle and lower distribution of the paraspinous muscles, but without specific trigger points, without radiation of pain. The patient has good rotational motion of the lumbar spine, both laterally as well as extension and flexion without significant difficulty. No tenderness over the spinous processes, sacrum or sacroiliac regions. EXTREMITIES: Lower extremities show deep tendon reflexes 2+ in the patellar and tendo calcaneus tendons. Motor exam is 5 on a scale of 5 with right dorsiflexion, extension, quadriceps and hamstring flexion and 4/5 on the left. Peripheral pulses are 1 posterior tibial. No peripheral edema is noted bilaterally. Lower extremities are warm and dry to touch, equal in color and appearance. SKIN: Shows warm and dry, good turgor. No edema. No sores, rashes or bruising throughout. Procedure: Procedure: Options were discussed with patient. Patient's old chart was reviewed as her current medication regimen updated current review of systems updated today as well. We will proceed with a lumbar epidural steroid injection today with fluoroscopic guidance. Risks were discussed including but not limited to: Bleeding, infection, possibility of epidural hematoma and subsequent neurological compromise, dural puncture, headaches, spinal cord and/or nerve damage, side effects of steroid medication, and poor results regarding pain control. Patient understands and wished to proceed. Patient will return to the clinic in approximate 2 weeks for follow-up, was counseled as to return appointment, and side effect beware of. Patient given new prescription medication of meloxicam 15 mg 1 p.o. daily. Patient given instructions as well as side effects beware with the new prescription medication. Medication Injected: Med Injected: Procedure is lumbar epidural steroid injection under local anesthetic using sterile prep and drape at the L5-S1 level using C-arm fluoroscopic guidance in both AP and lateral views medications injected is 20 mg dexamethasone +10mL preservative-free normal saline and 2 mL contrast- condition at discharge is stable patient tolerated procedure well had no complications. Condition at Discharge: Condition at Discharge: Discharge stable, patient tolerated procedure well and had no complications. DIONY HUGHES MD Jul 14, 2021 09:38
--- NOTE | 2021-07-14 09:39 | PDOC4 ---
Procedure Note: ICD 10 Code: ICD 10 Code: M54.17 M51.87 Procedure Note: Patient was consented for lumbar epidural steroid injection with fluoroscopic guidance. Risks were discussed including but not limited to: Bleeding, infection, possibility of epidural hematoma and subsequent neurological compromise, dural puncture, headaches, spinal cord and/or nerve damage, side effects of steroid medication, and poor results regarding pain control. Patient understands and wished to proceed. Procedure is lumbar epidural steroid injection under local anesthetic using sterile prep and drape at the L5-S1 level using C-arm fluoroscopic guidance in both AP and lateral views medications injected is 20 mg dexamethasone +10mL preservative-free normal saline and 2 mL contrast- condition at discharge is stable patient tolerated procedure well had no complications. DIONY HUGHES MD Jul 14, 2021 09:38
== END | disposition home or self-care (01) ==
LOC: PNCL 09:01
PROVIDERS: ATTEND Anesthesiology
DX: M51.16 Intervertebral disc disorders with radiculopathy, lumbar region (principal); M75.101 Unspecified rotator cuff tear or rupture of right shoulder, not specified as traumatic; Z79.82 Long term (current) use of aspirin; Z79.899 Other long term (current) drug therapy; Z72.89 Other problems related to lifestyle
CPT/HCPCS: 62323; J1100; Q9965

== ENCOUNTER → 2021-07-31 | Outpatient (CLI) | payer OTHER ==
--- NOTE | 2021-07-31 16:31 | PDOC ---
Progress Note - Pain Clinic Date of Service: DOS: DATE: 07/31/21 TIME: 16:26 Diagnosis: Dx: Lumbar radiculopathy with lumbar degenerative disc disease History or Present Illness: HPI: 56-year-old female returns for follow-up status post lumbar epidural to injection x1 with approximately 90% improvement for the first week and then down to about a 50% improvement overall patient reports pain low back left lower extremity radiating posterior gluteus posterior thigh posterior calf worse with walking standing changing positions also has been disturbing her sleep about every 6 hours or so patient reports he can reposition used to get back to sleep or put cold pack on her back or take pain medication which decreases it is well patient reports her pain is an 8 on scale 10 is worst least and average over the past week and 8 today describes aching and sharp in the back shooting and dull in the leg and radiating the leg with activity mostly with weightbearing standing walking changing positions better with sitting or laying down but again awakening from sleep. Patient reports no bowel or bladder incontinence. Patient reports secondary complaint of pain in the right shoulder which she has had rotator cuff repair within the past with some significant pain with abduction as well as reaching above her head where she has to assist with her left arm to reach overhead with the right hand patient reports has been waking her from sleep occasionally as well especially if she lays on her right side. Physical Exam: VS: Blood pressure is 145/89 pulse 99 respirations are 18 temperature 97.4 F weight 152 pounds. PE: PHYSICAL EXAMINATION: GENERAL: The patient is awake, alert, oriented, appropriate, very pleasant in demeanor HEENT: Shows normocephalic, atraumatic. Extraocular movements are intact and symmetrical. Oral cavity: Mucous membranes moist and pink. Dentition is intact. NECK: Shows anterior throat supple without palpable lymphadenopathy noted. Swallow reflex symmetrical. CHEST: Shows normal on inspection. Breath sounds are clear bilaterally, no rales or rhonchi auscultated. HEART: Shows S1, S2 clear. No murmurs auscultated. ABDOMEN: Soft, nontender, nondistended. No palpable organomegaly is noted. No rebound or guarding demonstrated. BACK: Shows spine grossly in the midline. Normal-appearing cervical lordotic curvature. There is slightly increased thoracic kyphosis, some minor flattening of the lumbar lordotic curvature. Lumbar paraspinous muscles show symmetrical on inspection, on palpation shows some moderate tenderness diffusely throughout the upper, middle and lower distribution of the paraspinous muscles without specific trigger points, without radiation of pain. The patient has good rotational motion of the lumbar spine, both laterally as well as extension and flexion without significant difficulty. No tenderness over the spinous processes, sacrum or sacroiliac regions. EXTREMITIES: Lower extremities show deep tendon reflexes 2+ in the patellar and tendo calcaneus tendons. Motor exam is 5 on a scale of 5 with right dorsiflexion, extension, quadriceps and hamstring flexion and 4/5 on the left. Peripheral pulses are 1+ posterior tibial. No peripheral edema is noted bilaterally. Lower extremities are warm and dry to touch, equal in color and appearance. Upper extremities show deep tendon reflexes 2+ in the bicep tricep tendons broker assistant strength is strong with 5 out of 5 bilateral is low as bicep tricep flexion 4-5 on the right 5 out of 5 on the left patient right shoulder shows some significant tenderness with abduction past 90 degrees with resistance but no loss of strength and no loss strength with shoulder shrug. Patient does show significant tenderness with anterior palpation over the biceps groove as well as in the lateral aspect of the deltoid but with deeper pain with forward reaching and resistance as well as posterior reaching resistance. Left side is full range of motion without tenderness. SKIN: Shows warm and dry, good turgor. No edema. No sores, rashes or bruising throughout. Procedure: Procedure: Options were discussed with the patient. Patient's old chart was reviewed as her current medication regimen updated current review of systems updated today as well. We will proceed with a lumbar epidural steroid injection today with fluoroscopic guidance. Risks were discussed including but not limited to: Bleeding, infection, possibility of epidural hematoma and subsequent neurological compromise, dural puncture, headaches, spinal cord and/or nerve damage, side effects of steroid medication, and poor results regarding pain control. Patient understands and wished to proceed. Patient return to clinic in approximately 2 weeks for follow-up, was counseled as to return appointment activity level and side effect to be aware of. We discussed the possibility of treating the right shoulder as well and patient will require preauthorization with her insurance. Medication Injected: Med Injected: Procedure is lumbar epidural steroid injection under local anesthetic using sterile prep and drape at the L5-S1 level using C-arm fluoroscopic guidance in both AP and lateral views medications injected is 20 mg dexamethasone +10mL preservative-free normal saline and 2 mL contrast- condition at discharge is stable patient tolerated procedure well had no complications. Condition at Discharge: Condition at Discharge: Condition at discharge is stable, patient tolerated the procedure well and had no complications. DIONY HUGHES MD Jul 31, 2021 16:31
--- NOTE | 2021-07-31 16:31 | PDOC4 ---
Procedure Note: ICD 10 Code: ICD 10 Code: M54.17 M5 127 M1 9.011 Procedure Note: Patient was consented for lumbar epidural steroid injection with fluoroscopic guidance. Risks were discussed including but not limited to: Bleeding, infection, possibility of epidural hematoma and subsequent neurological compromise, dural puncture, headaches, spinal cord and/or nerve damage, side effects of steroid medication, and poor results regarding pain control. Patient understands and wished to proceed. Procedure is lumbar epidural steroid injection under local anesthetic using st erile prep and drape at the L5-S1 level using C-arm fluoroscopic guidance in both AP and lateral views medications injected is 20 mg dexamethasone +10mL preservative-free normal saline and 2 mL contrast- condition at discharge is stable patient tolerated procedure well had no complications. DIONY HUGHES MD Jul 31, 2021 16:31
== END | disposition home or self-care (01) ==
LOC: PNCL 15:11
PROVIDERS: ATTEND Anesthesiology
DX: M51.16 Intervertebral disc disorders with radiculopathy, lumbar region (principal); M19.011 Primary osteoarthritis, right shoulder; Z79.82 Long term (current) use of aspirin; Z79.899 Other long term (current) drug therapy; Z72.89 Other problems related to lifestyle
CPT/HCPCS: 62323; J1100; Q9965